=== PATIENT | male | born 1995 | race African-American/Black ===

== ENCOUNTER 2017-08-14 07:52 | Emergency (ER) | payer OTHER ==
[~2017-08-14] VITALS: Ht 188 cm; Wt 62.1 kg
[2017-08-14 09:21] VITALS: BP 132/81
== END 2017-08-14 09:21 | disposition home or self-care (01) ==
LOC: ED 07:52
DX: R10.13 Epigastric pain (principal); R11.10 Vomiting, unspecified; R51 Headache
CPT/HCPCS: Q0162

== ENCOUNTER 2018-12-22 12:00 | Emergency (ER) | payer OTHER ==
[~2018-12-22] VITALS: Ht 185.4 cm; Wt 61.2 kg
[2018-12-22 12:27] VITALS: BP 113/67
== END 2018-12-22 14:34 | disposition home or self-care (01) ==
LOC: ED 12:00
DX: A56.01 Chlamydial cystitis and urethritis (principal); A54.01 Gonococcal cystitis and urethritis, unspecified
CPT/HCPCS: 87491; 87591; J0696

== ENCOUNTER 2019-01-20 10:18 | Emergency (ER) | payer OTHER ==
[~2019-01-20] VITALS: Ht 185.4 cm; Wt 62.3 kg
[2019-01-20 10:24] VITALS: Ht 185.4 cm; Wt 62.3 kg
[2019-01-20 11:45] VITALS: BP 114/53
[2019-01-20 14:20] LABS: UA SPECIFIC GRAVITY 1.015 (1.005-1.035); microscopic required? YES; urine erythrocyte NEGATIVE (NEGATIVE)
== END 2019-01-20 11:45 | disposition home or self-care (01) ==
LOC: ED 10:18
PROVIDERS: Specialist
DX: N39.0 Urinary tract infection, site not specified (principal)
CPT/HCPCS: 87491; 87591; J0696

== ENCOUNTER 2019-11-24 09:04 | Emergency (ER) | payer OTHER ==
[~2019-11-24] VITALS: Ht 185.4 cm; Wt 64.0 kg
[2019-11-24 09:23] VITALS: Ht 185.4 cm; Wt 64.0 kg
[2019-11-24 10:58] VITALS: BP 118/78
== END 2019-11-24 10:58 | disposition home or self-care (01) ==
LOC: ED 09:04
DX: R36.9 Urethral discharge, unspecified (principal)
CPT/HCPCS: 87491; 87591; J0696